=== PATIENT | female | born 2005 | race Hispanic/Latino ===

== ENCOUNTER 2024-07-02 20:39 | Emergency (ER) | payer OTHER ==
[~2024-07-02] VITALS: Ht 167.6 cm; Wt 96.6 kg
[2024-07-02 20:58] VITALS: BP 117/71; PULSE 88; RESP 20; O2SAT 99
[2024-07-02 21:11] LABS: APPEARANCE,URINE TURBID (CLEAR); BILIRUBIN,URINE NEGATIVE (NEGATIVE); COLOR,URINE DARK-BROWN (YELLOW); GLUCOSE, URINE (UA) NEGATIVE (NEGATIVE); KETONES,URINE NEGATIVE (NEGATIVE); LEUKOCYTE ESTERASE ,URINE 500 Leu/uL (NEGATIVE); NITRATE,URINE NEGATIVE (NEGATIVE); OCCULT BLOOD,URINE LARGE (NEGATIVE); PROTEIN,URINE 100 mg/dL (NEGATIVE); UROBILINOGEN,URINE 0.2 mg/dL (0.2-1.0)
[2024-07-02 21:16] LABS: ADD UA MICROSCOPIC YES
[2024-07-02 21:17] LABS: BACTERIA,URINE RARE /HPF (None Seen); RBC,URINE TNTC /HPF (0-1); SQUAMOUS EPITHELIAL CELL,UR FEW /HPF (0-2)
[2024-07-02] MEDS: 0.9%NACL 1000ML 1,000 ML IV ONE (23:14)
[2024-07-03] MEDS: cefTRIAXone 1G VIAL IVPB SCH (01:23)
[2024-07-03] MEDS ORDERED: SULF1TAB42 PO (03:21)
== END 2024-07-03 03:41 | disposition home or self-care (01) ==
LOC: EDH 20:39
DX: N39.0 Urinary tract infection, site not specified (principal)
CPT/HCPCS: 99285; 74176; 87086; 81001; 81025; 96374; 76856; J7030; J0696